=== PATIENT | male | born 1980 | race African-American/Black ===

== ENCOUNTER 2018-09-18 08:19 | Emergency (ER) | payer OTHER ==
[~2018-09-18] VITALS: Ht 172.7 cm; Wt 86.2 kg
[2018-09-18 10:58] VITALS: BP 130/64
== END 2018-09-18 10:59 | disposition home or self-care (01) ==
LOC: ER 08:19
DX: G44.009 Cluster headache syndrome, unspecified, not intractable (principal); F17.210 Nicotine dependence, cigarettes, uncomplicated